=== PATIENT | male | born 1960 | race Caucasian/White ===

== ENCOUNTER 2016-09-29 22:31 | Emergency (ER) | payer MEDICAID ==
[~2016-09-29] VITALS: Ht 182.9 cm; Wt 95.3 kg
[2016-09-29 22:43] VITALS: BP 128/83
== END 2016-09-30 01:00 | disposition left against medical advice (07) ==
LOC: ER 22:36
DX: R51 Headache (principal); R22.0 Localized swelling, mass and lump, head; Z53.21 Procedure and treatment not carried out due to patient leaving prior to being seen by health care provider; Y08.89XA Assault by other specified means, initial encounter; Y93.89 Activity, other specified; Y99.8 Other external cause status; Y92.89 Other specified places as the place of occurrence of the external cause
CPT/HCPCS: 70450